=== PATIENT | female | born 1975 | race Caucasian/White ===

== ENCOUNTER → 2016-07-06 | Outpatient (CLI) | payer OTHER ==
[~2016-07-06] MED LIST: HYDR-3063 PO
[2016-07-06 17:59] LABS: BASOPHILS % (AUTO) 0 % (0-10); EOSINOPHILS # (AUTO) 0.3 10^3/uL (0.0-0.3); EOSINOPHILS % (AUTO) 4 % (0-10); LYMPHOCYTES # (AUTO) 1.6 X 10^3 (1.0-4.0); LYMPHOCYTES % (AUTO) 25 % (12-44); MEAN CORPUSCULAR HEMOGLOBIN 27 PG (25-34); MEAN CORPUSCULAR HGB CONC 34 G/DL (32-36); MEAN CORPUSCULAR VOLUME 81 FL (80-99); MEAN PLATELET VOLUME 10.8 FL (7.4-10.4); MONOCYTES # (AUTO) 0.3 X 10^3 (0.0-1.0); MONOCYTES % (AUTO) 5 % (0-12); NEUTROPHILS # (AUTO) 4.3 X 10^3 (1.8-7.8); NEUTROPHILS % (AUTO) 66 % (42-75); PLATELET COUNT 223 10^3/uL (130-400); RED BLOOD COUNT 4.37 10^6/uL (4.35-5.85); RED CELL DISTRIBUTION WIDTH 14.5 % (10.0-14.5); WHITE BLOOD COUNT 6.5 10^3/uL (4.3-11.0)
== END ==
LOC: LAB 17:49
PROVIDERS: ATTEND Obstetrics & Gynecology
DX: N92.0 Excessive and frequent menstruation with regular cycle (principal)
CPT/HCPCS: 36415; 85025

== ENCOUNTER → 2016-07-07 | Outpatient (CLI) | payer OTHER ==
--- NOTE | 2016-07-07 14:33 | Diagnostic Imaging Report ---
INDICATION: Heavy vaginal bleeding for 10 days. IUD placed in March 2016. COMPARISON: 08/08/2014. DISCUSSION: Transabdominal and transvaginal sonographic evaluation of the pelvis was performed. The uterus is normal in size measuring 9.7 x 5.9 x 5.4 cm. The uterine myometrium is mildly heterogeneous, stable. No discrete uterine mass identified. Normal endometrial thickness measuring 0.6 cm. The left ovary was not visualized. The right ovary appears normal in echotexture and size with normal color Doppler blood flow. The right ovary measures 3.3 x 2.4 x 2.0 cm. The IUD appears to be located within the cervix in low-lying position. No abnormal adnexal mass or fluid. IMPRESSION: 1. IUD is located within the cervix. 2. Nonvisualization of the left ovary. Dictated by: Dictated on workstation # [id number]
== END ==
LOC: RAD 13:31
PROVIDERS: ATTEND Obstetrics & Gynecology
DX: N92.0 Excessive and frequent menstruation with regular cycle (principal); Z30.431 Encounter for routine checking of intrauterine contraceptive device
CPT/HCPCS: 76830; 76856

== ENCOUNTER → 2017-01-01 | Outpatient (CLI) | payer OTHER ==
--- NOTE | 2017-01-01 14:01 | Diagnostic Imaging Report ---
INDICATION: Heavy dysfunctional uterine bleeding, expelled IUD one week ago. COMPARISON: 07/07/2016. DISCUSSION: Transabdominal and transvaginal sonographic evaluation of the pelvis was performed. The uterus is normal in echotexture and size measuring 10.0 x 6.4 x 6.2 cm. Normal endometrial thickness measuring 1.6 cm. However, the endometrium does appear heterogeneous with the central portion more hyperechoic, which is nonspecific though could be seen with retained blood products. There is no internal abnormal color Doppler blood flow identified within the endometrium. Neither ovary was visualized, possibly obscured by bowel. No abnormal adnexal mass or fluid. IMPRESSION: 1. Heterogeneous appearance of the endometrium is nonspecific though could be seen with blood products. No abnormal internal color Doppler blood flow identified. 2. Nonvisualization of the ovaries. Dictated by: Dictated on workstation # [id number]
== END ==
LOC: RAD 12:55
PROVIDERS: ATTEND Obstetrics & Gynecology
DX: N92.0 Excessive and frequent menstruation with regular cycle (principal)
CPT/HCPCS: 76830; 76856

== ENCOUNTER 2017-01-12 14:17 | Day surgery (SDC) | payer OTHER ==
[~2017-01-12] VITALS: Ht 175.3 cm; Wt 113.4 kg
[2017-01-12] MEDS ORDERED: NS IV 1000 ML 1,000 ML ONE (14:35)
[2017-01-12] MEDS ORDERED: KETOROLAC 30 MG/ML VIAL ONE (14:35)
[2017-01-12] MEDS ORDERED: KETOROLAC 30 MG/ML VIAL IVP STA (14:37)
[2017-01-12] MEDS ORDERED: NS IV 1000 ML 1,000 ML IV ONE (14:37)
[2017-01-12 14:46] LABS: BASOPHILS % (AUTO) 1 % (0-10); EOSINOPHILS # (AUTO) 0.1 10^3/uL (0.0-0.3); EOSINOPHILS % (AUTO) 2 % (0-10); LYMPHOCYTES % (AUTO) 29 % (12-44); MEAN CORPUSCULAR HEMOGLOBIN 28 PG (25-34); MEAN CORPUSCULAR HGB CONC 34 G/DL (32-36); MEAN CORPUSCULAR VOLUME 83 FL (80-99); MEAN PLATELET VOLUME 10.1 FL (7.4-10.4); MONOCYTES # (AUTO) 0.2 X 10^3 (0.0-1.0); MONOCYTES % (AUTO) 6 % (0-12); NEUTROPHILS # (AUTO) 2.2 X 10^3 (1.8-7.8); NEUTROPHILS % (AUTO) 62 % (42-75); PLATELET COUNT 202 10^3/uL (130-400); RED BLOOD COUNT 3.54 10^6/uL (4.35-5.85); RED CELL DISTRIBUTION WIDTH 13.4 % (10.0-14.5); WHITE BLOOD COUNT 3.6 10^3/uL (4.3-11.0)
--- NOTE | 2017-01-12 14:53 | ED GU-Female ---
General Chief Complaint: -Female Stated Complaint: DYSFUNCTIONAL UTERINE BLEEDING Source: patient History of Present Illness Time seen by provider: 14:35 Initial Comments PT ARRIVES VIA POV PT HAS HAD SECOND MIRENA IUD PLACED IN JUNE OF THIS YEAR FOR MENORRHAGIA SPONTANEOUSLY EXPELLED IT 12/26/16 AND HAS HAD VERY HEAVY VAGINAL BLEEDING AND SEVERE CRAMPING SINCE THEN HAD TAPER DOSE OF CONTROL PILLS INITIALLY, WHICH HELPED SLOW THE BLEEDING DOWN, THEN IT GOT HEAVIER AGAIN WHEN IT WAS COMPLETED WAS ON VACATION IN [facility] LAST WEEK, AND BLEEDING BECAME HEAVY AGAIN AND HAD IV ESTROGEN 5 MG, AND WAS STARTED ON PROGESTERONE 20 MG TID ( 60 MG A DAY TOTAL ) AND HAS CONTINUED THAT FOR A WEEK, LAST DOSE WAS TODAY AT 1400 HGB AT THAT TIME WAS 11.5 BLEEDING HAD SLOWED SOME OVER THE LAST WEEK, THEN GOT VERY HEAVY AGAIN TODAY, WITH LOTS OF CRAMPING PT ESTIMATES SHE HAS LOST AT LEAST 500 ML OF BLOOD SINCE NOON TODAY HAS MILD NAUSEA HAS MILD DIZZINESS WITH SUDDEN MOVEMENTS HAS NEVER HAD BLEEDING AND CRAMPING THIS BAD--STATES CRAMPING FEELS LIKE LABOR AND RADIATES INTO BACK HAS DISCUSSED WITH DR. LYNN, AND HAD AN ULTRASOUND DONE 12/31/16 AND IT SHOWED ADENOMYOSIS PT HAS DISCUSSED AGAIN TODAY WITH DR. LYNN, AND SHE HAS BEEN REFERRED TO DR. FANG, SHE IS CLOSING HER PRACTICE THIS WEEK. REPORTEDLY DR. LYNN HAS UPDATED DR. FANG ABOUT THE PT. PT HAS NEW PT APPOINTMENT WITH DR. FANG ON Wednesday01/14/17 AND POSSIBLY WILL SCHEDULED FOR D&C AND ENDOMETRIAL ABLATION FOR WEDNESDAY. Allergies and Home Medications Allergies Coded Allergies: morphine (Unverified Allergy, Unknown, 01/24/15) Home Medications Medroxyprogesterone Acetate 10 Mg Tablet, 20 MG PO TID, #90 (Reported) Constitutional: see HPI, dizziness EENTM: no symptoms reported Respiratory: no symptoms reported Cardiovascular: no symptoms reported Gastrointestinal: see HPI, abdominal pain, nausea Genitourinary: see HPI : No Musculoskeletal: see HPI, back pain Skin: no symptoms reported Psychiatric/Neurological: No Symptoms Reported Endocrine: No Symptoms Reported Hematologic/Lymphatic: See HPI Past Vnfbuix-Kylcmp-Eicsbk Hx Patient Social History Former Smoker/When Quit: Jan 25, 2000 Recent Foreign Travel: No Contact w/Someone Who Travel: No Surgeries HX Surgeries: Yes (TUBAL LIGATION, BREAST BIOPSY; GANGLION CYST RIGHT WRIST) Surgeries: Breast, Tubal Ligation Respiratory Hx Respiratory Disorders: No Cardiovascular Hx Cardiac Disorders: No Neurological Hx Neurological Disorders: No Reproductive System : No Hx Reproductive Disorders: Yes (HEAVY MENSTRUAL CYCLES; ADENOMYOSIS) Sexually Transmitted Disease: No HIV/AIDS: No Female Reproductive Disorders: Menstrual Problems Genitourinary Hx Genitourinary Disorders: No Gastrointestinal Hx Gastrointestinal Disorders: No Musculoskeletal Hx Musculoskeletal Disorders: No Endocrine Hx Endocrine Disorders: No HEENT HX ENT Disorders: No Loss of Vision: Denies Hearing Impairment: Denies Cancer Hx Cancer: No Psychosocial Hx Psychiatric Problems: No Integumentary HX Skin/Integumentary Disorder: No Blood Transfusions Hx Blood Disorders: Yes (MILD ANEMIA FROM HEAVY MENSTRUAL CYCLES) Adverse Reaction to a Blood Tr: No Physical Exam Vital Signs Vital Sign - Last 12Hours 01/12/17 14:47 Temp 98.3 Pulse 99 Resp 20 B/P (MAP) 143/90 Pulse Ox 100 O2 Delivery Room Air Capillary Refill : General Appearance: WD/WN, no apparent distress HEENT: PERRL/EOMI, No pale conjunctivae (R), No pale conjunctivae (L) Neck: normal inspection Cardiovascular: regular rate, rhythm, no murmur Respiratory: normal breath sounds, no respiratory distress, no accessory muscle use Gastrointestinal: normal bowel sounds, soft, no organomegaly, tenderness (MILD LOWER ABDOMINAL TENDERNESS) Back: no CVA tenderness, no vertebral tenderness Extremities: normal inspection, no pedal edema, normal capillary refill 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, no motor/sensory deficits, alert, normal mood/affect, oriented x 3 Progress/Results/Core Measures Results/Orders Lab Results Laboratory Tests Test 01/12/17 14:38 Range/Units White Blood Count 3.6 L 4.3-11.0 10^3/uL Red Blood Count 3.54 L 4.35-5.85 10^6/uL Hemoglobin 9.9 L 11.5-16.0 G/DL Hematocrit 29 L 35-52 % Mean Corpuscular Volume 83 80-99 FL Mean Corpuscular Hemoglobin 28 25-34 PG Mean Corpuscular Hemoglobin Concent 34 32-36 G/DL Red Cell Distribution Width 13.4 10.0-14.5 % Platelet Count 202 130-400 10^3/uL Mean Platelet Volume 10.1 7.4-10.4 FL Neutrophils (%) (Auto) 62 42-75 % Lymphocytes (%) (Auto) 29 12-44 % Monocytes (%) (Auto) 6 0-12 % Eosinophils (%) (Auto) 2 0-10 % Basophils (%) (Auto) 1 0-10 % Neutrophils # (Auto) 2.2 1.8-7.8 X 10^3 Lymphocytes # (Auto) 1.0 1.0-4.0 X 10^3 Monocytes # (Auto) 0.2 0.0-1.0 X 10^3 Eosinophils # (Auto) 0.1 0.0-0.3 10^3/uL Basophils # (Auto) 0.0 0.0-0.1 10^3/uL Prothrombin Time 13.0 12.2-14.7 SEC INR Comment 1.0 0.8-1.4 Activated Partial Thromboplast Time 29 24-35 SEC Sodium Level 138 135-145 MMOL/L Potassium Level 3.5 L 3.6-5.0 MMOL/L Chloride Level 109 H 98-107 MMOL/L Carbon Dioxide Level 22 21-32 MMOL/L Anion Gap 7 5-14 MMOL/L Blood Urea Nitrogen 9 7-18 MG/DL Creatinine 0.77 0.60-1.30 MG/DL Estimat Glomerular Filtration Rate > 60 BUN/Creatinine Ratio 12 Glucose Level 98 70-105 MG/DL Calcium Level 8.8 8.5-10.1 MG/DL Total Bilirubin 0.5 0.1-1.0 MG/DL Aspartate Amino Transf (AST/SGOT) 18 5-34 U/L Alanine Aminotransferase (ALT/SGPT) 23 0-55 U/L Alkaline Phosphatase 51 40-136 U/L Total Protein 7.1 6.4-8.2 GM/DL Albumin 4.0 3.2-4.5 GM/DL Serum Test, Qualitative NEGATIVE NEGATIVE My Orders Orders - SUNSHINE HENSLEY K DO Saline Lock/Iv-Start (01/12/17 14:37) Cbc With Automated Diff (01/12/17 14:37) Comprehensive Metabolic Panel (01/12/17 14:37) Hcg,Qualitative Serum (01/12/17 14:37) Protime With Inr (01/12/17 14:37) Partial Thromboplastin Time (01/12/17 14:37) Type And Screen (01/12/17 14:37) Saline Lock/Iv-Start (01/12/17 14:37) Ns Iv 1000 Ml (Sodium Chloride 0.9%) (01/12/17 14:37) Ketorolac Injection (Toradol Injection) (01/12/17 14:37) Ketorolac Injection (Toradol Injection) (01/12/17 14:35) Ns Iv 1000 Ml (Sodium Chloride 0.9%) (01/12/17 14:35) Orphenadrine Injection (Norflex Injectio (01/12/17 15:00) Medications Given in ED Current Medications Medications Dose Ordered Sig/Kyle Route Start Time Stop Time Status Last Admin Dose Admin Orphenadrine Citrate 60 mg ONCE ONCE IV 01/12/17 15:00 01/12/17 15:01 DC 01/12/17 15:06 60 MG Sodium Chloride 1,000 ml @ 0 mls/hr Q0M ONCE IV 01/12/17 14:37 01/12/17 14:39 DC 01/12/17 14:46 0 MLS/HR Vital Signs/I&O Vital Sign - Last 12Hours 01/12/17 14:47 Temp 98.3 Pulse 99 Resp 20 B/P (MAP) 143/90 Pulse Ox 100 O2 Delivery Room Air Progress Note : Progress Note NO DETERIORATION IN PT'S CONDITION DURING ER STAY Departure Communication Progress Notes 1523--SPOKE WITH DR. FANG, HE WILL BE DOWN TO SEE PT SHORTLY 1547--DR. FANG HERE, CARE TURNED OVER TO HIM 1615--DR. FANG WILL BE TAKING PT DIRECTLY TO SURGERY Impression Impression: Primary Impression: Menometrorrhagia Disposition: ADMITTED INPATIENT (TO SURGERY ) Condition: Stable Decision to Admit Reason: Admit from ER (General) (TO SURGERY) Decision to Admit/Date: Jan 12, 2017 Time/Decision to Admit Time: 16:15 Departure-Patient Inst. Referrals: ANILA TOUSSAINT MD (PCP) Primary Care Physician ALEXANDRE DOVE MD (Family) Primary Care Physician SUNSHINE HENSLEY DO Jan 12, 2017 14:53
[2017-01-12] MEDS ORDERED: ORPHENADRINE 60 MG/2 ML (NORFLEX) AMP IV ONE (15:00)
[2017-01-12] MEDS ORDERED: MEDR10TA9 PO (15:02)
[2017-01-12 15:09] LABS: ALANINE AMINOTRANSFERASE 23 U/L (0-55); ANION GAP 7 MMOL/L (5-14); ASPARTATE AMINO TRANSFERASE 18 U/L (5-34); BILIRUBIN,TOTAL 0.5 MG/DL (0.1-1.0); BLOOD UREA NITROGEN 9 MG/DL (7-18); BUN/CREATININE RATIO 12; CALCIUM 8.8 MG/DL (8.5-10.1); CARBON DIOXIDE 22 MMOL/L (21-32); CHLORIDE 109 MMOL/L (98-107); CREATININE SERUM 0.77 MG/DL (0.60-1.30); GFR ESTIMATED > 60; GLUCOSE 98 MG/DL (70-105); POTASSIUM 3.5 MMOL/L (3.6-5.0); SODIUM 138 MMOL/L (135-145); TOTAL PROTEIN 7.1 GM/DL (6.4-8.2)
[2017-01-12] MEDS ORDERED: LACTATED RINGERS 1,000 ML IV ONE (16:36)
[2017-01-12] MEDS ORDERED: DEXAMETHASONE PF 10 MG/ML (DECADRON) VIAL ONE (16:41)
[2017-01-12] MEDS ORDERED: ONDANSETRON 4 MG/2 ML (SDV) Z0FRAN ONE ×2 (16:41→17:36)
[2017-01-12] MEDS ORDERED: fentaNYL INJECTION 100 MCG/2 ML AMP ONE ×2 (16:42→17:25)
[2017-01-12] MEDS ORDERED: MIDAZOLAM 2 MG/2 ML (VERSED) VIAL ONE (16:43)
[2017-01-12] MEDS: LACTATED RINGERS 1,000 ML IV PRN ×2 (16:48→17:30)
--- NOTE | 2017-01-12 16:59 | History & Physical-Surgical ---
HPO-Surgical History of Present Illness Chief Complaint: Per emergency room physician: PT REPORTS MIRENA PLACED IN 07/14, AND EXPELLED IT 12/26/16. PT RECEIVED TAPER DOSES OF CONTROL TO REDUCE BLEEDING THEN WENT ON VACATION. WHILE ON VACATION HAD INCREASED BLEEDING AND WENT TO ER AND RECEIVED IV ESTROGEN. STARTED ON PROVERA 10MG TID THEN INCREASED TO 20MG TID. Subjective: Patient reports chronic history of bleeding issues. She had been attempted to be controlled with oral contraceptive pills in the past and was unsuccessful. She had a Mirena placed in June 2016 and the last 4-5 months have been very well controlled as far as her amount of bleeding. However the Mirena expelled on December 26 and since that time she's had significant heavy amounts of bleeding. The patient was on vacation last week and had good emergency department for the amount of bleeding she was having. Today she reports cramping significant enough to call contraction cramping. She denies any change in sexual partners. No concerns or sexual transmitted diseases. Diagnosis/Surgical Indication: Abnormal uterine bleeding, Acute blood loss anemia, uterine enlargement Procedure: Dilatation and Curettage Date of Surgery: Jan 12, 2017 Weight (Pounds): 250 Height (Feet): 5 Height (Inches): 9.00 Allergies and Home Medications Allergies Coded Allergies: morphine (Unverified Allergy, Unknown, 01/24/15) Home Medications Medroxyprogesterone Acetate 10 Mg Tablet, 20 MG PO TID, #90 (Reported) Past Lfohdem-Acakdb-Aqfptf Hx Patient Social History Marrital Status: Employed/Student: employed Alcohol Use: Occasionally Uses Recreational Drug Use: No Smoking Status: Never a Smoker Former smoker/When Quit: Jan 25, 2000 Recent Foreign Travel: No Contact w/other who traveled: No Recent Hopitalizations: No Recent Infectious Disease Expo: No Immunizations Up To Date Tetanus Booster (TDap): More than 5yrs Seasonal Allergies Seasonal Allergies: No Surgeries HX Surgeries: Yes (TUBAL LIGATION, BREAST BIOPSY; GANGLION CYST RIGHT WRIST) Surgeries: Breast, Tubal Ligation Respiratory Hx Respiratory Disorders: No Cardiovascular Hx Cardiovascular Disorders: No Neurological Hx Neurological Disorders: No Reproductive System : No Hx Reproductive Disorders: Yes (HEAVY MENSTRUAL CYCLES; ADENOMYOSIS) Sexually Transmitted Disease: No HIV/AIDS: No Female Reproductive Disorders: Menstrual Problems Genitourinary Hx Genitourinary Disorders: No Gastrointestinal Hx Gastrointestinal Disorders: No Musculoskeletal Hx Musculoskeletal Disorders: No Endocrine Hx Endocrine Disorders: No HEENT HX ENT Disorders: No Loss of Vision: Denies Hearing Impairment: Denies Cancer Hx Cancer: No Psychosocial Hx Psychiatric Problems: No Integumentary HX Skin/Integumentary Disorder: No Blood Transfusions Hx Blood Disorders: Yes (MILD ANEMIA FROM HEAVY MENSTRUAL CYCLES) Adverse Reaction to a Blood Tr: No Exam Vital Signs Vital Signs 01/12/17 14:47 Temp 98.3 Pulse 99 Resp 20 B/P (MAP) 143/90 Pulse Ox 100 O2 Delivery Room Air Capillary Refill : Less Than 3 Seconds Labs Laboratory Tests Test 01/12/17 14:38 Range/Units White Blood Count 3.6 L 4.3-11.0 10^3/uL Red Blood Count 3.54 L 4.35-5.85 10^6/uL Hemoglobin 9.9 L 11.5-16.0 G/DL Hematocrit 29 L 35-52 % Mean Corpuscular Volume 83 80-99 FL Mean Corpuscular Hemoglobin 28 25-34 PG Mean Corpuscular Hemoglobin Concent 34 32-36 G/DL Red Cell Distribution Width 13.4 10.0-14.5 % Platelet Count 202 130-400 10^3/uL Mean Platelet Volume 10.1 7.4-10.4 FL Neutrophils (%) (Auto) 62 42-75 % Lymphocytes (%) (Auto) 29 12-44 % Monocytes (%) (Auto) 6 0-12 % Eosinophils (%) (Auto) 2 0-10 % Basophils (%) (Auto) 1 0-10 % Neutrophils # (Auto) 2.2 1.8-7.8 X 10^3 Lymphocytes # (Auto) 1.0 1.0-4.0 X 10^3 Monocytes # (Auto) 0.2 0.0-1.0 X 10^3 Eosinophils # (Auto) 0.1 0.0-0.3 10^3/uL Basophils # (Auto) 0.0 0.0-0.1 10^3/uL Prothrombin Time 13.0 12.2-14.7 SEC INR Comment 1.0 0.8-1.4 Activated Partial Thromboplast Time 29 24-35 SEC Sodium Level 138 135-145 MMOL/L Potassium Level 3.5 L 3.6-5.0 MMOL/L Chloride Level 109 H 98-107 MMOL/L Carbon Dioxide Level 22 21-32 MMOL/L Anion Gap 7 5-14 MMOL/L Blood Urea Nitrogen 9 7-18 MG/DL Creatinine 0.77 0.60-1.30 MG/DL Estimat Glomerular Filtration Rate > 60 BUN/Creatinine Ratio 12 Glucose Level 98 70-105 MG/DL Calcium Level 8.8 8.5-10.1 MG/DL Total Bilirubin 0.5 0.1-1.0 MG/DL Aspartate Amino Transf (AST/SGOT) 18 5-34 U/L Alanine Aminotransferase (ALT/SGPT) 23 0-55 U/L Alkaline Phosphatase 51 40-136 U/L Total Protein 7.1 6.4-8.2 GM/DL Albumin 4.0 3.2-4.5 GM/DL Serum Test, Qualitative NEGATIVE NEGATIVE General Appearance: Alert, Oriented X3 HEENT: Atraumatic Respiratory: Clear to Auscultation Cardiovascular: Regular Rate Abdominal: Normal Bowel Sounds Extremities: No Clubbing Skin: No Rashes Neuro: Normal Gait Psych/Mental Status: Mental Status NL Assessment/Plan Admission Diagnosis Diagnosis: 41-year-old female with abnormal uterine bleeding Acute blood loss anemia Syncopal symptoms Plan: Patient was extensively counseled about conservative medical management in the form of estrogen IV, converting to oral. And then proceeding with stabilization with ongoing progesterone. Next we discussed proceeding with D&C for both diagnostic and hopefully curative purposes. Due to failure of the initial method offered in the past, the patient wishes to proceed with D&C. Risk of the procedure was discussed with the patient detail with her family present. After all questions are answered and consent was obtained. ADIA FANG DO Jan 12, 2017 4:59 pm
[2017-01-12] MEDS ORDERED: MEPERIDINE (DEMEROL) INJ 50 MG/ML IVP PRN (17:00)
[2017-01-12] MEDS ORDERED: ONDANSETRON 4 MG/2 ML (SDV) Z0FRAN IVP PRN ×2 (17:00→17:45)
[2017-01-12] MEDS ORDERED: HYDROmorphone (DILAUDID) 2 MG/ML VIAL IVP PRN (17:00)
[2017-01-12] MEDS ORDERED: fentaNYL INJECTION 100 MCG/2 ML AMP IVP PRN (17:00)
[2017-01-12] MEDS ORDERED: BUPIVACAINE 0.25% 30 ML (SENSORCAINE) VIAL ONE (17:05)
[2017-01-12] MEDS ORDERED: ROCURONIUM 50 MG/5 ML (ZEMURON) VIAL IV ONE (17:15)
[2017-01-12] MEDS ORDERED: proPOfol 200 MG/20 ML (DIPRIVAN) VIAL IV ONE (17:15)
[2017-01-12] MEDS ORDERED: SEVOFLURANE (ULTANE) 15 ML INHAL SOLN ONE ×3 (17:15→17:16)
[2017-01-12] MEDS ORDERED: SUCCINYLCHOLINE INJ 100 MG/5 ML SYR ONE (17:15)
[2017-01-12] MEDS ORDERED: LIDOCAINE PF 2% 5 ML (XYLOCAINE) VIAL ONE (17:15)
[2017-01-12] MEDS ORDERED: diphenhydrAMINE 50 MG/ML INJ (BENADRYL) ONE (17:36)
[2017-01-12] MEDS ORDERED: D5 LR IV SOLUTION 1,000 ML IV SCH (17:41)
[2017-01-12] MEDS ORDERED: KETOROLAC 30 MG/ML VIAL IVP ONE (17:45)
[2017-01-12] MEDS ORDERED: ACETAMINOPHEN 500 MG TAB (TYLENOL) PO PRN (17:45)
--- NOTE | 2017-01-12 18:40 | Progress Note-Post Operative ---
Post-Operative Progess Note Surgeon (s)/Fork Truck Driver (s) Surgeon ADIA FANG DO Fork Truck Driver: none Pre-Operative Diagnosis Abnormal uterine bleeding, Acute blood loss anemia, uterine enlargement Post-Operative Diagnosis same Procedure & Operative Findings Date of Procedure 01/12/17 Procedure Performed/Findings SURGEON: Dr. Adia Fang. ANESTHESIA: General endotracheal. ESTIMATED BLOOD LOSS: Minimal. URINE OUTPUT: 25 mL clear drained at the end of procedure. FLUIDS: 1000 mL lactated ringer solution. FINDINGS: Enlarged uterine cavity with moderate amount of partially necrotic tissue, mixed with normal appearing endometrial tissue. No intracavitary lesions or abnormalities. No adnexal fullness or masses appreciated on bimanual examination. SPECIMEN SENT: Endometrial curettings. INDICATIONS FOR THE PROCEDURE: This 41-year-old female is a patient that been established in Dr. Cannon's office. She had a history of IUD expulsion followed by massive amounts of bleeding over the past month. She presented to the ER today lightheaded and found to have hgb 9.9. I discussed with her the medical option of estrogen vs. proceeding the d and c. The risk of bleeding, infection, damaging the uterus, permanent infertility, postoperative complications including thromboembolic events, and anesthesia, were all discussed with the patient in detail. After all of her questions were answered with her present, consent was obtained. The patient was taken to the operating room. OPERATIVE REPORT IN DETAIL: Once in the operating room, general anesthesia was found to be adequate. She was placed in the dorsal lithotomy position, prepped and draped in normal sterile fashion. Timeout was performed.She was first examined under anesthesia. The uterus is enlarged 12-14 wk size, freely mobile. There is no adnexal fullness or masses appreciated on bimanual examination. A weighted speculum was inserted into the patient's vagina. A right angle retractor is used to visualize the cervix, grasped at the 12 o'clock position using a long Allis clamp. I then sound the uterine cavity depth, it was found to be 7 cm. I perform a paracervical block at 3 and 9 o'clock positions using 0.25% Marcaine. 5 mL are used at each injection site. Care was taken to aspirate before injecting. I then gently dilate the cervix using Hegar dilators to allow placement of my medium endometrial curette. I then perform a gentle curette of all endometrial cavity. No cavitary lesions or irregularies are palpated on curettage, however the cavity does sound to 12 cm. After this is complete I remove all the instruments from the patient's vagina. The patient tolerated the procedure well and was taken to the recovery area in stable condition. Lap and sponge counts were correct at the end of the procedure and instrument count is correct as well. Straight catheterization of 25 mL of clear urine is removed after the procedure is completed. Anesthesia Type GETA Estimated Blood Loss Estimated blood loss (mL): min Specimens/Packing Specimens Removed endometrial curettings ADIA FANG DO Jan 12, 2017 6:40 pm
[2017-01-12] MEDS ORDERED: IBUP-1773 PO (18:42)
--- NOTE | 2017-01-12 18:43 | Discharge Inst-Women's Service ---
Discharge Inst-Women's Serv Depart Medication/Instructions New, Converted or Re-Newed RX: Call to Patients Pharmacy Consults/Follow Up Additional Follow Up: Yes Orders/Referrals Dr. Fang in 2-3 weeks Activity Activity: Activity as Tolerated Driving Instructions: You May Drive NO SMOKING: NO SMOKING Nothing Inside Vagina: No Douching, No Woody, No Tampons Diet Discharge Diet: No Restrictions Symptoms to Report to : Bleeding Excessive, Pain Increased, Fever Over 101 Degrees F, Vaginal Bleeding Increase, Questions/Concerns For Any Problems or Questions: Contact Your Physician Skin/Wound Care Bathing Instructions: Shower (x 1 week) ADIA FANG DO Jan 12, 2017 6:43 pm
[2017-01-12 19:50] VITALS: BP 122/72
[2017-01-13 00:10] VITALS: BP 105/63
[2017-01-13 05:10] VITALS: BP 93/57
[2017-01-13 06:44] LABS: MEAN PLATELET VOLUME 10.9 FL (7.4-10.4); RED BLOOD COUNT 3.36 10^6/uL (4.35-5.85); RED CELL DISTRIBUTION WIDTH 13.3 % (10.0-14.5); WHITE BLOOD COUNT 7.3 10^3/uL (4.3-11.0)
[2017-01-13 08:15] VITALS: BP 113/70
--- NOTE | 2017-01-13 10:23 | Anesthesia-General Post-Op ---
General Patient Condition Mental Status/LOC: Same as Preop Cardiovascular: Satisfactory Nausea/Vomiting: Absent Respiratory: Satisfactory Pain: Controlled Complications: Absent Post Op Complications Complications None Follow Up Care/Instructions Patient Instructions None needed. Anesthesia/Patient Condition Patient Condition Patient is already discharged to home in stable condition. No complications per RN. KYLE GRANADOS DO Jan 13, 2017 10:23
== END 2017-01-13 09:00 | disposition home or self-care (01) ==
LOC: EDUNIT# 14:17 → ER 14:19 → SDC 16:13 → WS 20:35 → SDC 01-13 09:00
PROVIDERS: ATTEND Obstetrics & Gynecology
DX: N92.0 Excessive and frequent menstruation with regular cycle (principal); N85.2 Hypertrophy of uterus; D62 Acute posthemorrhagic anemia; R42 Dizziness and giddiness
CPT/HCPCS: 36415; 80053; 84703; 85025; 85027; 85610; 85730; 86850; 86900; 86901; 88305; 96361; 96374; 96375

== ENCOUNTER → 2017-05-28 | Outpatient (CLI) | payer OTHER ==
[~2017-05-28] MED LIST changes: +IBUP-1773 PO; +MEDR10TA9 PO
== END ==
LOC: RAD 11:07
PROVIDERS: ATTEND Nurse Practitioner
DX: Z12.31 Encounter for screening mammogram for malignant neoplasm of breast (principal)
CPT/HCPCS: 77067